=== PATIENT | female | born 1940 | race Caucasian/White ===

== ENCOUNTER → 2016-12-03 | Outpatient (CLI) | payer MEDICARE ==
[~2016-12-03] MED LIST: AFRIN 30 ML30 ML; AMLO5TAB PO; BENAZEPRIL HYDR40 MG PO; HYDROCHLOROTHIA50 MG PO; METFORMIN1000 MG PO; PRAVASTATIN20 MG PO; SULFAMETHOXAZOL1 TA6 PO
--- NOTE | 2016-12-03 14:31 | RADIOLOGY REPORT PS360 ---
BONE DENSITOMETRY(HIP:LT SPINE HISTORY: POST MENOPAUSAL ORDERING PHYSICIAN: Manuelito Noel MD PATIENT AGE: 76 years COMPARISON: None FINDINGS: The BMD measured at the right femoral neck is 0.829 g/cm squared with a T score of -1.5. This is considered Osteopenic according to the World Health Organization criteria. Fracture risk is Moderate. Treatment is advised. IMPRESSION: Osteopenia. Recommend follow-up exam November 2018.
--- NOTE | 2016-12-06 11:00 | RADIOLOGY REPORT PS360 ---
DIG MAMM-SCREEN [facility] W/CAD CAD Screening COMPARISON: Analog mammograms 04/19/2009 and digital mammograms 04/12/2015 INDICATION: There is no personal or family history of breast cancer TECHNIQUE: Standard CC and MLO images were obtained. R2 CAD reviewed. FINDINGS: Minimal scattered fiber glandular densities are seen in both breast on a background of fatty breast parenchyma. There is prominent arterial calcification in each breast and there is scattered benign-appearing calcifications in each breast more prominent right than left typical of secretory disease. There is no suspicious lesion and there are no suspicious microcalcifications. IMPRESSION: Stable exam no suspicious lesion seen recommend yearly follow-up BI-RADS CATEGORY: 2_Benign RECOMMENDED FOLLOWUP: 12M 12 MONTH FOLLOW-UP (A letter has been sent to the patient regarding results of the study.)
== END ==
LOC: RAD 10:06
DX: Z12.31 Encounter for screening mammogram for malignant neoplasm of breast (principal); N60.11 Diffuse cystic mastopathy of right breast; N60.12 Diffuse cystic mastopathy of left breast; Z78.0 Asymptomatic menopausal state; Z13.820 Encounter for screening for osteoporosis
CPT/HCPCS: G0202